=== PATIENT | female | born 1995 | race African-American/Black ===

== ENCOUNTER → 2016-11-12 08:53 | Outpatient (CLI) | payer MEDICAID | LOC: D.MRI 08:30 | DX: D17.79 Benign lipomatous neoplasm of other sites (principal) ==

== ENCOUNTER 2018-10-24 16:35 | Emergency (ER) | payer SELFPAY ==
[~2018-10-24] VITALS: Ht 157.5 cm; Wt 90.9 kg
[2018-10-24 17:05] VITALS: Ht 157.5 cm; Wt 90.9 kg
[2018-10-24] MEDS ORDERED: AMOXICILLIN500 M1 PO (17:25)
[2018-10-24] MEDS ORDERED: TYLENOL W/CODEI1 TAB PO (17:26)
[2018-10-24 18:10] LABS: BASOPHILS 0.1 % (0-2); EOSINOPHILS 0.2 % (0-7); HEMATOCRIT 32.3 % (36.0-48.0); HEMOGLOBIN 9.5 g/dL (12-16); IMMATURE GRANULOCYTES 0.3 % (0-5); LYMPHOCYTES 10.6 % (15-50); MCHC 29.4 g/dL (31.0-37.0); MCV 68.1 fL (80.0-100.0); MONOCYTES 7.9 % (2-11); NEUTROPHILS 80.9 % (40-80); PLATELET COUNT 263 10x3/uL (130-400); RBC 4.74 10x6/uL (4.00-5.40); RDW 20.4 % (11.5-14.5)
[2018-10-24 18:41] LABS: HCG SERUM NEGATIVE (NEGATIVE)
[2018-10-24 19:05] VITALS: BP 126/77
== END 2018-10-24 19:06 | disposition home or self-care (01) ==
LOC: D.ER 16:35
PROVIDERS: Family Medicine
DX: J02.9 Acute pharyngitis, unspecified (principal); Z86.2 Personal history of diseases of the blood and blood-forming organs and certain disorders involving the immune mechanism; R50.9 Fever, unspecified

== ENCOUNTER 2019-03-06 20:25 | Emergency (ER) | payer SELFPAY ==
[~2019-03-06] VITALS: Ht 157.5 cm; Wt 112.3 kg
[~2019-03-06 20:25] MED LIST: AMOXICILLIN500 M1 PO; TYLENOL W/CODEI1 TAB PO
[2019-03-06 20:32] VITALS: Ht 157.5 cm; Wt 112.3 kg
[2019-03-06] MEDS ORDERED: TYLENOL W/CODEI1 TAB PO (22:53)
[2019-03-06] MEDS ORDERED: CLEOCIN HCL300 MG PO (22:53)
[2019-03-06 23:38] VITALS: BP 135/74
== END 2019-03-06 23:39 | disposition home or self-care (01) ==
LOC: D.ER 20:25
DX: L72.3 Sebaceous cyst (principal)

== ENCOUNTER 2019-04-28 00:15 | Emergency (ER) | payer SELFPAY ==
[~2019-04-28] VITALS: Ht 157.5 cm; Wt 115.2 kg
[~2019-04-28 00:15] MED LIST changes: +CLEOCIN HCL300 MG PO
[2019-04-28 00:18] VITALS: Ht 157.5 cm; Wt 115.2 kg
[2019-04-28] MEDS ORDERED: HYDROCODON-ACE1 EA10 PO (00:50)
[2019-04-28] MEDS ORDERED: DOXYCYCLINE HY100 M2 PO (00:50)
[2019-04-28] MEDS ORDERED: CLEOCIN HCL300 MG PO (00:50)
== END 2019-04-28 01:21 | disposition home or self-care (01) ==
LOC: D.ER 00:15
DX: L73.2 Hidradenitis suppurativa (principal)